=== PATIENT | female | born 1975 | race Caucasian/White ===

== ENCOUNTER 2017-02-20 16:04 | Emergency (ER) | payer OTHER ==
[~2017-02-20] VITALS: Ht 170.2 cm; Wt 69.0 kg
[~2017-02-20 16:04] MED LIST: ACET650T46 PO; ALBU18HF INH; ALPR0.5T8 PO; CHLO500T24 PO; DICY10CA13 PO; HYOS0.1281 SL; OMEP20TA86 PO; OXYC-465 PO; SOMA350 PO; [UNRECOGNIZED DRUG - CODE] PO
[2017-02-20 16:16] VITALS: BP 118/82; PULSE 89; RESP 14; O2SAT 99
[2017-02-20] MEDS ORDERED: Ondansetron 2 mg/mL 2 mL Inj IVPUSH PRN (16:25)
[2017-02-20] MEDS ORDERED: HYDROmorphone 1 mg/mL Inj IVPUSH PRN (16:25)
[2017-02-20] MEDS ORDERED: 0.9% Sodium Chloride 1,000 ML IV ONE (16:25)
[2017-02-20 17:09] LABS: BASOPHILS % (AUTO) 0.9 % (0-3); EOSINOPHILS % (AUTO) 3.7 % (0-5); MONOCYTES % (AUTO) 6.2 % (4-12); Mean Corpuscular Hemoglobin 31.5 pg (27.0-35.0); Mean Corpuscular Volume 93.9 fL (81-100); NEUTROPHILS % (AUTO) 53.3 % (40-74); Platelet Count 211 bil/L (150-400)
--- NOTE | 2017-02-20 17:23 | ED.REPORT ---
HPI-Abd Pain F 40 and Over Date of Service Feb 20, 2017 ED Provider: Magdaleno Champagne PA-C Whitney is a 41-year-old female with a chief complaint of pancreatitis. She is referred from urgent care. She reports a 4 day history of upper abdominal pain which she rated 7/10 radiating to her chest, right arm and back. Pain is associated with diarrhea, vomiting, and episode of subjective fever. Patient denies melena, hematochezia, emesis, urinary symptoms, vaginal bleeding/ discharge. Attempting treatment with ondansetron, hydrocodone/acetaminophen 10/ 325 to limited effect. Patient reports a history of pancreatitis, most recently approximately 4 months ago. Also reports a history of a hysterectomy, cholecystectomy, IBS, GERD managed with omeprazole as well as chronic hip pain treated at home with hydrocodone/APAP 10/325 BID. Patient reports recently increased use of this medication. Nursing Notes Stated Complaint: PANCREATITIS Chief Complaint: Female Abdominal Pain Nursing Notes Reviewed: Yes Allergies: Coded Allergies: Penicillins (Verified Allergy, Severe, ANAPHYLAXIS, 05/30/16) aspirin (Verified Allergy, Severe, MAKES ASYTHMA WORSE, 05/30/16) egg (Verified Allergy, Severe, WORSENS ASYTHMA, 05/30/16) halothane (Verified Allergy, Severe, 05/30/16) nitrofurantoin (Verified Allergy, Severe, 10/06/15) latex (Verified Allergy, Intermediate, ITCHING AND SWELLING, 10/06/15) Sulfa (Sulfonamide Antibiotics) (Verified Allergy, Unknown, 05/30/16) sulfamethoxazole (Verified Allergy, Unknown, 05/30/16) trimethoprim (Verified Allergy, Unknown, 05/30/16) Uncoded Allergies: PENICILLIN (Allergy, Severe, Anaphylaxis, 10/06/15) SULFA (Allergy, Severe, HIVES,SWELLING, 06/21/09) FLOTHANE (Allergy, Unknown, ANAPHYLAXIS, 01/29/07) FLU VACCINE (Allergy, Unknown, 03/18/15) Scheduled Alprazolam (Alprazolam) 0.5 Mg Tablet 1 MG PO HS Carisoprodol (Carisoprodol) 350 Mg Tab 350 MG PO HS Hydrocodone/Acetaminophen 10-325 mg (Lortab 10-325 mg Tablet) 1 Each Tablet 1 EACH PO DAILY Hyoscyamine SL (Levsin SL) 0.125 Mg Tab.subl 0.125 MG SL Q4 Omeprazole (Omeprazole) 20 Mg Tablet.dr 20 MG PO BID Scheduled PRN Acetaminophen Extended Release (Tylenol Arthritis Pain Extended-Release) 650 Mg Tablet.er 1,300 MG PO Q8H PRN PRN For Pain Albuterol Sulfate (Ventolin HFA Inhaler) 200 Puff/18 Gm Inhaler 2 PUFF INH BID PRN PRN For Wheezing Chlorzoxazone (Chlorzoxazone) 500 Mg Tablet 500 MG PO BID PRN PRN For Spasm Dicyclomine (Dicyclomine) 10 Mg Capsule 10 MG PO QID PRN PRN For GI Cramps oxyCODONE-Acetaminophen 7.5-325 mg (oxyCODONE-Acetaminophen 7.5-325 mg) 1 Each Tablet 1-2 TAB PO Q6H PRN PRN For Pain General Time Seen by MD: 16:27 Chief Complaint Other (pancreatitis) Sudden in Onset?: No Past Medical History Past Medical History Autoimmune pancreatitis Reports: Asthma Reports: IV Drug use Past Surgical History Reports: , Cholecystectomy, Hysterectomy, Tonsillectomy Smoking History Current Every Day Smoker Social History Alcohol Use: Denies alcohol use Drug Use: Denies drug use Ambulatory Status Independent Review of Systems Negative unless stated otherwise in history of present illness Physical Exam General: Well appearing, well developed, well nourished, no acute distress. Head: Atraumatic, normocephalic. Eyes: No scleral icterus or injection. No discharge. Vision grossly intact. ENT: Voice clear, hearing grossly intact. Respiratory: Regular rate and rhythm. Breath sounds present, clear to auscultation and equal bilaterally. No respiratory distress. No increased work of breathing, speaks in complete sentences. Cardiovascular: Regular rate and rhythm, without murmur, gallop or rub. No pedal edema. Gastrointestinal: Abdomen flat and moderately tender in the upper quadrants most prominently in the left upper quadrant, without rebound. Bowel sounds normoactive. Back: Normal to inspection, negative CVA tenderness Skin: Warm and dry. Neurological: Grossly nonfocal. Psychological: Alert and oriented. Speech appropriate, linear and logical. Behavior appropriate. Vital Signs Vital Signs (First) Date Time Temp Pulse Resp B/P Pulse Ox O2 Delivery O2 Flow Rate FiO2 02/20/17 16:16 36.6 89 14 118/82 99 Room Air Normal Interpretation & Diagnostics Lab Results Interpretation Result Diagram: 02/20/17 1648 02/20/17 1648 Test 02/20/17 16:48 White Blood Count 7.9th/mm3 (3.8-10.1) Red Blood Count 4.13mil/mm3 (3.90-5.20) Hemoglobin 13.0g/dL (12.0-15.6) Hematocrit 38.8% (35.0-46.0) Mean Corpuscular Volume 93.9fL (81-100) Mean Corpuscular Hemoglobin 31.5pg (27.0-35.0) Mean Corpuscular Hemoglobin Concent 33.5% (32.0-37.0) Red Cell Distribution Width 12.7% (12.3-15.4) Platelet Count 211bil/L (150-400) Neutrophils (%) (Auto) 53.3% (40-74) Lymphocytes (%) (Auto) 35.8% (14-46) Monocytes (%) (Auto) 6.2% (4-12) Eosinophils (%) (Auto) 3.7% (0-5) Basophils (%) (Auto) 0.9% (0-3) Sodium Level 138mEq/L (134-144) Potassium Level 3.5mEq/L (3.5-5.2) Chloride Level 102mEq/L (97-108) Carbon Dioxide Level 24mmol/L (18-29) Blood Urea Nitrogen 9mg/dL (6-24) Creatinine 0.63mg/dL (0.57-1.00) Estimat Glomerular Filtration Rate 148mL/min (>59) Glucose Level 81mg/dL (60-99) Calcium Level 9.3mg/dL (8.5-10.1) Magnesium Level 1.7mg/dL (1.6-2.6) Total Bilirubin 0.3mg/dL (0.0-1.2) Aspartate Amino Transf (AST/SGOT) 14U/L (0-50) Alanine Aminotransferase (ALT/SGPT) 10U/L (0-32) Alkaline Phosphatase 60U/L (25-150) Total Protein 6.4g/dL (6.4-8.4) Albumin 3.7g/dL (3.4-5.0) Lipase 33U/L (13-60) Hold Bartlett Top Tube Received (Received) CT Abd / Pelvis Interpretation PROCEDURE: CT ABDOMEN AND PELVIS WITH CONTRAST ([id number]) INDICATIONS: upper abdominal tenderness IMPRESSION: 1. Hepatomegaly. 2. No acute intra-abdominal/pelvic process Interpretation / Wet Read by: Interpret - Radiologist Re-Eval/Medical Decision Med Decision/Clinical Course 41-year-old female with a history of pancreatitis complains of upper abdominal quadrant tenderness for the last 4 days associated with nausea, vomiting, diarrhea and an episode of subjective fever. She reports this is just like her previous pancreatitis. Seen previously at the urgent care and referred to the emergency department. On Physical examination she appears uncomfortable lying on the gurney on her side. No acute distress. Tender in the upper quadrants, most prominently in the upper left quadrant. Normal vitals, afebrile. CBC, CMP , lipase, and tests are ordered as well as 1 mg of Dilaudid. This partially helpful, and the patient retains further relief by 0.5 mg Ativan for spasticity. CBC, CMP, lipase are all normal. I discussed case with Dr. Laws who recommends CT with oral contrast. This is normal as well. At this point I cannot explain her abdominal pain by reassured regarding pancreatitis, diverticulitis, cholecystitis, perforation, nephrolithiasis, pyelonephritis. I believe she is stable and safe to be discharged to home. Urinalysis was never collected, but I feel this can be deferred as the patient denies any urinary symptoms, back pain and has no CVA tenderness. Advised patient regarding over- the-counter analgesia and cautioned against opiates for abdominal pain. Advised stool softeners, which she has a prescription for. Advised primary care follow-up as soon as possible and gave emergency return precautions. Patient verbalizes understanding of and consents to the plan. Discharge & Departure Primary Impression: Abdominal pain Abdominal location: left upper quadrant Qualified Code: R10.12 - Left upper quadrant pain Disposition: Home Discharge Condition All VS Reviewed: Yes Condition: Stable Patient Instructions: Acute Abdominal Pain (ED) Additional Instructions: Evaluation in the emergency department for abdominal pain consists of interview , physical examination, lab tests and CT scan all of which are reassuring that her pain is not caused by an immediately dangerous condition. I believe you are stable and safe to be discharged home. The pain is best treated with 600 mg of ibuprofen (Advil, Motrin) every 6 hours , or 1000 mg of acetaminophen (Tylenol) every 6 hours. These drugs can be taken at the same time for more severe pain. I caution you against using your prescribed narcotic pain medications for this pain. Plan plenty of fluids and be consistent in taking your stool softeners. Follow-up with your primary care provider tomorrow or the next day. Return to the emergency department for any new or worsening symptoms including increasing pain, fever, inability to pass stool or gas. Referrals: Mariola Haji EDSupervising Provider for APC: Jv aLws DO copies to: Mariola Haji Seth PA-C Feb 20, 2017 17:23
[2017-02-20 17:33] LABS: Magnesium 1.7 mg/dL (1.6-2.6)
[2017-02-20] MEDS ORDERED: Iohexol 300 mg/mL 30 mL Inj PO ONE (18:30)
[2017-02-20 18:39] VITALS: BP 117/79; PULSE 80; RESP 16; O2SAT 100
--- NOTE | 2017-02-20 20:00 | DRSVH ---
PROCEDURE: CT ABDOMEN AND PELVIS WITH CONTRAST ([id number]) INDICATIONS: upper abdominal tenderness TECHNIQUE: After the administration of oral and intravenous contrast, 5 mm thick sections acquired from the diap hragm to the symphysis. 5 mm coronal and sagittal reformats were acquired. For radiation dose reduc tion, the following was used: automated exposure control, adjustment of mA and/or kV according to pa tient size. COMPARISON: [facility], CT, CT ABD PELVIS W CON, 09/07/2015, 15:45. [facility] W&WO CON, 10/11/2015, 10:43. [facility], CT, CT ABD PELVIS W CON, 05/31/20 16, 0:22. FINDINGS: Image quality: Excellent. ABDOMEN: Lung bases: Lung bases are clear. Heart size is normal. Solid organs: Liver is increased in size measuring 22.2 cm in length. Spleen is normal in size and e nhancement. Gallbladder is normal. Biliary system is non dilated. Pancreas enhances normally. No adrenal nodules. Kidneys demonstrate normal size and enhancement, without hydronephrosis. Peritoneum and bowel: Bowel loops demonstrate normal wall thickness and caliber. Appendix is normal . No free fluid or air. Nodes and vessels: No retroperitoneal or mesenteric adenopathy by size criteria. Aorta and inferior vena cava are normal in size. Miscellaneous: No ventral hernias. PELVIS: Genitourinary: Bladder wall thickness is normal. Miscellaneous: No inguinal hernias or adenopathy. Bones: No suspicious bony lesions. No vertebral body compression fractures. IMPRESSION: 1. Hepatomegaly. 2. No acute intra-abdominal/pelvic process Dictated by: Michael Mcneal M.D. on 02/20/2017 at 19:51 Approved by: Michael Mcneal M.D. on 02/20/2017 at 19:58
[2017-02-20 20:38] VITALS: BP 108/64; PULSE 84; RESP 16; O2SAT 96
== END 2017-02-20 20:40 | disposition home or self-care (01) ==
LOC: SED 16:04
DX: R10.12 Left upper quadrant pain (principal); R19.7 Diarrhea, unspecified; R11.10 Vomiting, unspecified; K21.9 Gastro-esophageal reflux disease without esophagitis; J45.909 Unspecified asthma, uncomplicated; F17.200 Nicotine dependence, unspecified, uncomplicated; Z90.710 Acquired absence of both cervix and uterus; Z90.49 Acquired absence of other specified parts of digestive tract; Z87.19 Personal history of other diseases of the digestive system; Z79.51 Long term (current) use of inhaled steroids; Z79.891 Long term (current) use of opiate analgesic; Z88.0 Allergy status to penicillin; Z88.2 Allergy status to sulfonamides; Z88.7 Allergy status to serum and vaccine; Z88.4 Allergy status to anesthetic agent; Z88.6 Allergy status to analgesic agent
CPT/HCPCS: 36415; 74177; 80053; 81002; 83690; 83735; 85025; 96361; 96374; 96375; 99285; G0463; J1170; J2060; J2405; J7030; Q9967